=== PATIENT | female | born 1985 | race Caucasian/White ===

== ENCOUNTER 2018-01-13 16:31 | Emergency (ER) | payer OTHER ==
[~2018-01-13] VITALS: Ht 152.4 cm; Wt 53.5 kg
[2018-01-13 16:40] VITALS: Ht 152.4 cm; Wt 53.5 kg
[2018-01-13 17:30] LABS: BASOPHIL % 0.6 % (0-2); PLATELET COUNT 258 x10^3mcL (130-400); RED CELL DISTRIBUTION WIDTH 12.5 % (11.5-14.5)
[2018-01-13 18:24] VITALS: BP 98/66
== END 2018-01-13 19:24 | disposition home or self-care (01) ==
LOC: ED 16:31
PROVIDERS: Emergency Medicine
DX: O20.0 Threatened abortion (principal); Z3A.01 Less than 8 weeks gestation of pregnancy
CPT/HCPCS: 36415